=== PATIENT | female | born 1990 | race African-American/Black ===

== ENCOUNTER 2024-12-30 09:00 | Emergency (ER) | payer OTHER, SELFPAY ==
[2024-12-30 09:25] VITALS: BP 121/53; PULSE 84; RESP 16; TEMP 36.9; O2SAT 99; BMI 26.6
[2024-12-30 10:50] LABS: Hematocrit 36.7 % (37.0-47.0); Hemoglobin 12.2 g/dl (12.0-16.0); Mean Corpuscular HGB Conc 33.2 g/dl (31.0-35.0); Mean Corpuscular Hemoglobin 28.7 pg (27.0-33.0); Mean Corpuscular Volume 86.4 fL (80.0-98.0); Mean Platelet Volume 8.4 fL (9.4-12.3); Platelet Count 265 X10*3/uL (160-400); Red Blood Count 4.25 X10*6/uL (4.20-5.50); Red Cell Distribution Width 13.1 % (11.0-16.0); White Blood Count 5.3 X10*3/uL (4.8-10.8)
--- NOTE | 2024-12-30 11:07 | ED_ITS ---
HPI - Female Genitourinary General Chief complaint: Vaginal Bleeding Stated complaint: Clotting Issue Time Seen by Provider: 12/30/24 10:56 History of Present Illness HPI Narrative: Patient is a 34-year-old female had an elective termination beginning of Sep, been having intermittent vaginal bleeding since. Patient notice a piece of tissue that was hard came to the ED currently is having her menstruation. Patient is sexually active. There is no fever no chills. There is no abdominal pain. There was no coughing or congestion or upper respiratory symptoms. Feeling somewhat weak since the elective termination. Nausea has improved. Related Data Previous Rx's ?Medication ?Instructions ?Recorded metoclopramide HCl 10 mg tablet 10 mg PO Q6H PRN nausea and 09/29/24 vomiting #12 tabs Allergies Allergy/AdvReac Type Severity Reaction Status Date / Time No Known Allergies Allergy Verified 12/30/24 09:28 [No Known Allergies*] Review of Systems 2 Review of Systems: Positive vaginal bleeding Yes all other systems are reviewed and are negative [facility] Social History Social History (System 12/05/24 @ 14:50 by Haylie Garcia) Alcohol intake: current Alcohol intake frequency: does not drink Alcohol type: wine Smoked in Last 30 Days: No Use of substances other than those prescribed or required for medical reasons: Yes Substance Use Type: Marijuana Substance Use Frequency: Occasionally Any prior treatment program specific to substance use: No Advance Directives: No Advance Directives Information Provided: Yes Do you have a plan to hurt others: No Plan Patient : No Physical Exam 2 Vital Signs: Vital Signs: Last Vital Signs Temp 98.4 F 12/30/24 09:25 Pulse 84 12/30/24 09:25 Resp 16 12/30/24 09:25 BP 121/53 L 12/30/24 09:25 Pulse Ox 99 12/30/24 09:25 O2 Del Method Room Air 12/30/24 09:25 BMI result Body Mass Index 26.6 Appearance: Alert. Oriented X3. No acute distress. Eyes: Pupils equal, round and reactive to light. ENT: Pharynx normal. Neck: Normal inspection. Neck supple. No lymph nodes noted. No crepitus CVS: Normal heart rate and rhythm. Pulses normal. Normal S1 and S2 Respiratory: No respiratory distress. Breath sounds normal. No Wheezing. No rales Abdomen: Soft and nontender. No rigidity. No distention. good BS x4 Skin: Skin warm and dry. Normal skin color. Normal skin turgor. Extremities: No lower extremity edema. Neurovascular intact to all extremities. No Lacerations. No Rash Neuro: Oriented X 3. No motor deficit. No sensory deficit. Moving all extermities. No slurred speech Medical Decision Making Medical Decision Making [facility] Narrative: 34 years old had an elective termination in September. Complaining of having spotting throughout the last 2 months. She is sexually active. She had had menstrual period afterwards. Her menstruation has been regular. The amount of bleeding has been slightly different. Patient past and piece of tissue wanted that evaluated as well. This was sent to pathology. Patient's test came back with a quant of 5. Case was discussed with hospital admissions officer. Thought this is likely secondary to the elective termination but we want to make sure it is not a new . Patient was given a script for a repeat quantitative hCG to be done in 2 days. Follow-up with OBGYN outpatient. I did a pelvic exam with nurse Perrin present. Patient's has no external lesions. The cervical os was closed. There is no adnexal tenderness. There is no gross blood noted in the vaginal canal. Differential Diagnosis Differential Diagnoses: The differential diagnosis associated with the presentation includes Early , elective termination Admission/Observation Consideration of admission/observation: Escalation of care including admission/observation considered considered admission but patient's hemoglobin is good at 12. Well-appearing no distress. Quant hCG only at 5. Unlikely to be ectopic. Will discharge patient ho Consult Healthcare Provider Management of the patient was discussed with: Program Officer ( OBGYN) Lab Data [facility] Lab Attestation statement: I reviewed the patient's lab results. 12/30/24 10:43 Labs: Lab Results 12/30/24 12/30/24 12/30/24 Range/Units 10:43 10:44 11:16 WBC 5.3 (4.8-10.8) X10*3/uL RBC 4.25 (4.20-5.50) X10*6/uL Hgb 12.2 (12.0-16.0) g/dl Hct 36.7 L (37.0-47.0) % MCV 86.4 (80.0-98.0) fL MCH 28.7 (27.0-33.0) pg MCHC 33.2 (31.0-35.0) g/dl RDW 13.1 (11.0-16.0) % Plt Count 265 (160-400) X10*3/uL MPV 8.4 L (9.4-12.3) fL Absolute Nucleated RBC 0.000 (0.0-0.012) X10*3/uL Nucleated RBC % (auto) 0.0 (0.0-0.2) /100WBC Beta HCG, Quant 5 mIU/mL Urine Color Yellow Urine Appearance Clear Urine pH 7.0 (5.0-9.0) Ur Specific [place] 1.015 (1.005-1.025) Urine Protein Negative (Neg-Trace) mg/dL Urine Glucose (UA) Negative (Negative) mg/dL Urine Ketones Negative (Negative) mg/dL Urine Blood Moderate (2+) H (Negative) Urine Nitrite Negative (Negative) Ur Leukocyte Esterase Small (1+) H (Negative) Urine RBC 0-2 (0-2) /HPF Urine WBC 0-5 (0-5) /HPF Ur Squamous Epith Cells 6-10 (0-2) /HPF Urine Bacteria 1+ (None Seen) Hyaline Casts 0-2 (0-2) /LPF Discharge Plan Discharge Clinical Impression: Vaginal bleeding Patient Disposition: Home, Self-Care Instructions: Menorrhagia (ED) Additional Instructions: very small risk of still exists. Very small risk of ectopic versus early . Please get repeat hormone to be done in 2 days. Follow-up with OBGYN. Prescriptions: No Action metoclopramide HCl 10 mg tablet 10 mg PO Q6H PRN (Reason: nausea and vomiting) Qty: 12 0RF Referrals: Tripp Alejandre MD [Physician] - 01/02/25 Print Language: American
[2024-12-30 11:13] LABS: HCG Quantitative 5 mIU/mL
--- OUTSIDE RECORDS SUMMARY | 2024-12-30 11:22 | XMS_ITS | Clinical Summary ---
Author Organization [employer] Address [address] [place] [address] Care Team Providers Care Intramural Director Name Role Phone Provider, Not In System Primary Care Provider Un available Allergies No known active allergies Medications valACYclovir (Valtrex) 500 MG tabletIndications:H erpes simplex vulvovaginitis Take 1 tablet (500 mg) by mouth 2 times daily. 60 tablet 1 3 Active etonogestrel-elutin g (Nexplanon) 68 mg contraceptive implant Inject 68 mg under the skin. 8 Active Active Problems Problem Noted Date Diagnosed Date Overweight with body mass in dex (BMI) of 28 to 28.9 in adult 12/16/2022 Sciatic pain, right 12/16/2022 Tinea versicolor 12/16/2022 Herpes simplex vulvovaginitis 12/16/2022 Encounter for routine adult health examination without abnormal findings 12/16/2022 Social History Tobacco Use Types Packs/Day Years Used Date Smoking Tobacco: Never Smokeless Tobacco: Never Tobacco Cessation:Counseling Given: Not Answered Alcohol Use Standard Drinks/Week Comments Never 0 (1 standard drink = 0.6 oz pur e alcohol) Housing Stability Answer Date Recorded What is your housing situation today? I have vida dong 07/06/[address] you li ve. Do you have problems with any of the following? Pests such as bugs, ants, or mice;Mold;Inadequate heat 07/06/2023 Food Insecurity Answer Date Recorded Within the past 12 months, y ou worried that your food would run out before you got money to buy more: Never True 07/24/2023 Within the past 12 months,th e food you bought just didn't last and you didn't have enough money to get more: Never True Transportation Answer Date Recorded In the past 12 months, has l ack of transportation kept you from medical appts, meetings, work or from getting things needed for daily living? Yes, it has kept me from medical appointments or getting medications. 07/06/2023 Utilities Answer Date Recorded In the past 12 months, has t he electric, gas, oil or water company threatened to shut off services in your home? No 07/24/2023 Depression Answer Date Recorded Patient Health Questionnaire-2 Score 0 12/16/2022 Comments Unknown Sex and Gender Information Value Date Recorded Sex Assigned at Female 10/16/2022 9:20 AM EST Legal Sex Female 8:40 PM EST Gender Identity Female 08/08/2022 8:40 PM EST Sexual Orientation Straight 08/08/2022 8: 40 PM EST Last Filed Vital Signs Vital Sign Reading Time Taken Comments Blood Pressure 114/66 05/26/2023 1:25 PM EDT Pulse 71 05/26/2023 1:25 PM EDT Temperature 36.4 ??C (97.5 ??F) 05/25/2023 9:07 AM ED T Respiratory Rate - - Oxygen Saturation 99% 05/26/2023 1:25 PM EDT Inhaled Oxygen Concentration - - Weight 69.9 kg (154 lb) 05/26/2023 1:25 PM EDT Height 162.6 cm (5' 4 ) 05/26/2023 1:25 PM EDT Body Mass Index 26.43 05/26/2023 1:25 PM EDT Plan of Treatment Health Maintenance Due Date Last Done Comments Dental Oral Exam 1990 Dental Prophylaxis 1990 Dental X-Ray: Bitewings 1990 Dental X-Ray: Full Mouth 1990 Alcohol/Substance Use Screening 2002 Family Planning (PISQ) 2005 Hepatitis B Vaccines (1 of 3 - 19+ 3-dose series) 2009 Pap Smear 2011 Cervical Cancer Screening 2020 HPV/Cotest 2020 DTaP/Tdap/Td Vaccines (2 - T d or Tdap) 03/25/2022 03/25/2012 Depression Screening 12/17/2023 12/16/2022, 12/16/2022 SDOH Screening 12/17/2023 12/16/2022 Tobacco Screening 05/26/2024 05/26/2023 COVID-19 Vaccine (1 - 2023-2 5 season) 2024 Influenza Vaccine (#1) 2024 Zoster Vaccines (1 of 2) 2040 RSV Patients and Patients Aged 60 years or older (1 - 1-dose 75+ series) 2065 HIV Screening Completed 10/15/2022 Hepatitis C Screening Completed 10/15/2022 HIB Vaccines Aged Out No longer eligi ble based on patient's age to complete this topic HPV Vaccines Aged Out No longer eligi ble based on patient's age to complete this topic Hepatitis A Vaccines Aged Out No long er eligible based on patient's age to complete this topic IPV Vaccines Aged Out No longer eligi ble based on patient's age to complete this topic Meningococcal Vaccine Aged Out No dalton jeannie eligible based on patient's age to complete this topic Pneumococcal Vaccine: Pediatrics (0 to 5 Years) and At-Risk Patients (6 to 49) Years) Aged Out No longer eligible b ased on patient's age to complete this topic RSV under 20 months Aged Out No longe r eligible based on patient's age to complete this topic Rotavirus Vaccines Aged Out No longer eligible based on patient's age to complete this topic Procedures Procedure Name Priority Date/Time Associated Diagnosis Comments HEPATITIS C AB W/REFLEX TO HCV QUANT NAAT IF POSITIVE Routine 10/15/2022 10:17 AM EST HIV ANTIBODY/ANTIGEN, 4TH GENERATION Routine 10/15/2022 10:17 AM EST from Last 3 Months or Most Recently Relevant to Health Maintenance Results * HIV ANTIBODY/ANTIGEN, 4TH GENERATION (10/15/2022 10:17 AM EST) Result 4th Gen HIV Antibody Antigen NEGATIVE (NEG) [facility] Comment: Negative for antibodies to HIV 1 and HIV 2 and P24 antigen. Reference range: Negative Additional note: Written patient authorization is required for each separate release of this test result. This test was performed on the [employer] immunoassay system. Testing performed or reported by [facility], a Service of [facility], [address] [place] [address] Emmanuel Canada MD, Line Appliance Assembler CLIA# [id number] 10/15/2022 10:1 7 AM EST 10/15/2022 10:19 AM EST Lavonne Lynn [facility] BLOOD ORDERABLES Final Res ult Performing Organization Address [facility] Co de Phone Number [facility] [address] [place] [address] * Hepatitis C Antibody w/Reflex HCV Quant PCR (10/15/2022 10:17 AM EST) Hepatitis C Virus Ab, Serum NEGATIVE (NEG) [facility] Comment: Reference range: Negative This test was performed on the [employer] immunoassay system. Testing performed or reported by [facility], a Service of [facility], [facility] [address] [address] Emmanuel Canada MD, Line Appliance Assembler CLIA# [id number] 10/15/2022 10:1 7 AM EST 10/15/2022 10:19 AM EST Lavonne Lynn [facility] BLOOD ORDERABLES Final Res ult Performing Organization Address [facility] de Phone Number [facility] [address] [place] [phone] from Last 3 Months or Most Recently Relevant to Health Maintenance Insurance [facility] C[place] STAND ADULT DENTAL - HSN FULL (MEDICAID) Care Teams Intramural Director Relationship Specialty Start Date End Date Provider, Not In System PCP - General Family Medicine 12/29/23
[2024-12-30 11:27] LABS: Appearance Urine Clear; Color Urine Yellow; Glucose Urine UA Negative (Negative); Leukocyte Esterase Urine Small (1+) (Negative); Nitrite Urine Negative (Negative); Specific Gravity - Urine 1.015 (1.005-1.025); UMIC TRIGGER UACC YES; Urine Blood Moderate (2+) (Negative); Urine Ketones Negative (Negative); Urine Protein Negative (Neg-Trace)
[2024-12-30 11:35] LABS: Bacteria Urine 1+ (None Seen); Hyaline Casts Urine 0-2 /LPF (0-2); RBC Urine 0-2 /HPF (0-2); UACC Culture Trigger YES; WBC Urine 0-5 /HPF (0-5)
--- NOTE | 2024-12-30 12:09 | PC.NURSE ---
Pt brought a piece of tissue that was expelled from her while on the toilet; tissue sample placed in specimen cup and hand-delivered to pathology by this RN for ordered analysis
--- NOTE | 2024-12-30 13:07 | PC.NURSE ---
Pelvic exam completed by Dr Sanchez with this RN present; pt tolerated well
[2024-12-30 13:11] VITALS: BP 112/79; PULSE 62; RESP 14; TEMP 36.5; O2SAT 99
[2024-12-30 13:14] VITALS: BP 112/79; PULSE 62; RESP 14; TEMP 36.5; O2SAT 99
--- NOTE | 2024-12-30 13:19 | PM.GYNCN ---
SEEDLING PULLER - CN: HPI Data of Consult Consult date: 12/30/24 Primary Care Provider: None Physician Consult Narrative Narrative: I was consulted on Dianna Morales who is a 34 year old female status post medical termination of in the beginning of Sep, presenting complaining of vaginal bleeding no associated pelvic pain and or other concerns. Patient notice a piece of tissue that was hard came to the ED currently is having her menstruation. Patient is sexually active. There is no fever no chills. There is no abdominal pain. In the emergency room H&H was 12.2/36.5 HCG was 5 cc:: CC: OB [facility] Social History Social History (System 12/05/24 @ 14:50 by Haylie Garcia) Alcohol intake: current Alcohol intake frequency: does not drink Alcohol type: wine Smoked in Last 30 Days: No Use of substances other than those prescribed or required for medical reasons: Yes Substance Use Type: Marijuana Substance Use Frequency: Occasionally Any prior treatment program specific to substance use: No Advance Directives: No Advance Directives Information Provided: Yes Do you have a plan to hurt others: No Plan Patient : No Meds Allergies Allergy/AdvReac Type Severity Reaction Status Date / Time No Known Allergies Allergy Verified 12/30/24 09:28 [No Known Allergies*] SEEDLING PULLER Physical Exam Vitals Vital signs: Temp Pulse Resp BP Pulse Ox O2 Del Method 97.7 F 62 14 112/79 99 Room Air 12/30/24 13:14 12/30/24 13:14 12/30/24 13:14 12/30/24 13:14 12/30/24 13:14 12/30/24 13:14 BMI result Body Mass Index 26.6 Additional Comments: Physical exam reported by Dr. Sanchez as the following: Soft and nontender. No rigidity. No distention. good BS x4 SEEDLING PULLER - Results Labs 12/30/24 10:43 Labs: Short CBC 12/30/24 Range/Units 10:43 WBC 5.3 (4.8-10.8) X10*3/uL Hgb 12.2 (12.0-16.0) g/dl Hct 36.7 L (37.0-47.0) % Plt Count 265 (160-400) X10*3/uL Urine 12/30/24 Range/Units 11:16 Urine Color Yellow Urine Appearance Clear Urine pH 7.0 (5.0-9.0) Ur Specific [place] 1.015 (1.005-1.025) Urine Protein Negative (Neg-Trace) mg/dL Urine Glucose (UA) Negative (Negative) mg/dL Assessment and Plan (1) Vaginal bleeding: Status: Acute Discussed the following with Dr. Sanchez: Differential diagnosis includes early , elevated hCG related to incomplete , abnormal uterine bleeding or other, recommended repeat hCG with a re-evaluation in 48 hours. Signs and symptoms of ectopic and incomplete to be discussed with the patient. Instructions to be given to patient to come back to emergency room in case of persistence or worsening vaginal bleeding, pelvic pain, temperature above 100.4, follow-up with quantitative hCG/re-evaluation in 48 hours in the emergency room to ensure hCG is dropping. If hCG is increasing rule out ectopic and documented IUP, if hCG drops below 2, elevated hCG is related to previous termination of I spent a total of 20 minutes reviewing the chart, communicating with the emergency room provider and documenting in the medical record.
== END 2024-12-30 13:14 | disposition home or self-care (01) ==
PROVIDERS: Emergency Provider Emergency Medicine Emergency Medical Services
DX: N93.9 Abnormal uterine and vaginal bleeding, unspecified (principal); N93.8 Other specified abnormal uterine and vaginal bleeding; R10.2 Pelvic and perineal pain; Z79.899 Other long term (current) drug therapy
CPT/HCPCS: 36415; 81001; 84702; 85027; 87086; 88305; 99284

== ENCOUNTER → 2024-12-30 09:58 | Outpatient (BNV) | payer OTHER, SELFPAY | PROVIDERS: Emergency Provider Emergency Medicine Emergency Medical Services; Visit Provider Obstetrics & Gynecology | DX: N93.9 Abnormal uterine and vaginal bleeding, unspecified (principal) | CPT/HCPCS: 99499 ==

== ENCOUNTER 2025-04-17 19:20 | Emergency (ER) | payer OTHER, SELFPAY ==
[2025-04-17 19:34] VITALS: BP 111/72; PULSE 61; RESP 18; TEMP 36.4; O2SAT 99; BMI 22.8
--- NOTE | 2025-04-17 19:34 | ED.GENADULT ---
HPI - General Adult General Chief complaint: General Medical Stated complaint: none stop N/V weak, 10 weeks + Related Data Previous Rx's ?Medication ?Instructions ?Recorded metoclopramide HCl 10 mg tablet 10 mg PO Q6H PRN nausea and 09/29/24 vomiting #12 tabs Allergies Allergy/AdvReac Type Severity Reaction Status Date / Time No Known Allergies (No Known Allergy Verified 04/17/25 19:36 Allergies*) [facility] Social History Social History (System 12/05/24 @ 14:50 by Haylie Garcia) Alcohol intake: current Alcohol intake frequency: does not drink Alcohol type: wine Substance Use Type: Marijuana Advance Directives: No Advance Directives Information Provided: No Do you have a plan to hurt others: No Plan Physical Exam ED Vital Signs: BMI result Body Mass Index 22.8 Course Course Course Narrative: This is an RME performed by Jazmyn Davis CNP: Additional HPI, ROS, PE not included below will be deferred to primary provider. Patient is a 34-year-old female who presents emergency department for evaluation she is a G8, a 2 currently 10 weeks gestation with estimated due date 11/11/2025, following with the Obstetrics at [facility], has been taking vitamin B6 and Unisom for morning sickness. However she states that today she has been vomiting all day, having shaking chills, can not keep anything down. Denies symptoms. Has diffuse upper abdominal pain. Has already had ultrasound confirming IUP Plan: Serum labs, hCG, urinalysis Reevaluation(s) Reevaluation #1: CT Medical Decision Making Lab Data 04/17/25 20:33 04/17/25 20:33 Labs: Lab Results 04/17/25 04/17/25 Range/Units 20:33 20:36 WBC 11.3 H (4.8-10.8) X10*3/uL RBC 4.09 L (4.20-5.50) X10*6/uL Hgb 12.1 (12.0-16.0) g/dl Hct 34.1 L (37.0-47.0) % MCV 83.4 (80.0-98.0) fL MCH 29.6 (27.0-33.0) pg MCHC 35.5 H (31.0-35.0) g/dl RDW 13.9 (11.0-16.0) % Plt Count 244 (160-400) X10*3/uL MPV 8.4 L (9.4-12.3) fL Immature Gran % (Auto) 0.4 (0.0-0.4) % Neut % (Auto) 93.5 H (45-73) % Lymph % (Auto) 4.6 L (20-40) % [place] % (Auto) 1.3 L (2-11) % Eos % (Auto) 0.0 (0-4) % Baso % (Auto) 0.2 (0-2) % Lymph # (Auto) 0.5 L (1.2-4.9) X10*3/uL [place] # (Auto) 0.2 (0.1-1.2) X10*3/uL Eos # (Auto) 0.0 (0.0-0.4) X10*3/uL Baso # (Auto) 0.0 (0.0-0.2) X10*3/uL Abs Immat Gran (auto) 0.04 H (0.00-0.03) X10*3/uL Absolute Neuts (auto) 10.6 H (2.0-8.3) x10*3/uL Absolute Nucleated RBC 0.000 (0.0-0.012) X10*3/uL Nucleated RBC % (auto) 0.0 (0.0-0.2) /100WBC Smear Tech's Comments VERIFIED Sodium 136 (135-145) mmol/L Potassium 3.6 (3.3-5.1) mmol/L Chloride 103 (96-108) mmol/L Carbon Dioxide 22 (22-29) mmol/L Anion Gap 15 (12-20) BUN 10 (9-16) mg/dL Creatinine 0.52 (0.5-1.4) mg/dL Estim Creat Clear Calc 131.6 Estimated GFR > 60 Random Glucose 121 H (60-115) mg/dL Calcium 8.8 (8.4-10.2) mg/dL Total Bilirubin 0.5 (0.0-1.0) mg/dL AST 22 (5-31) U/L ALT 8 (0-31) U/L Alkaline Phosphatase 40 (39-117) U/L Total Protein 7.2 (6.5-8.0) g/dL Albumin 4.3 (3.5-5.0) g/dL Lipase 13 (8-78) U/L Beta HCG, Quant [id number] mIU/mL Urine Color Yellow Urine Appearance Clear Urine pH 6.0 (5.0-9.0) Ur Specific [place] >= 1.030 H (1.005-1.025) Urine Protein 30 (1+) H (Neg-Trace) mg/dL Urine Glucose (UA) Negative (Negative) mg/dL Urine Ketones >=160 (Negative) mg/dL Urine Blood Trace H (Negative) Urine Nitrite Negative (Negative) Ur Leukocyte Esterase Small (1+) H (Negative) Urine RBC 3-5 H (0-2) /HPF Urine WBC >50 H (0-5) /HPF Ur Squamous Epith Cells 3-5 (0-2) /HPF Urine Bacteria None Seen (None Seen) Hyaline Casts 0-2 (0-2) /LPF Discharge Plan Discharge Clinical Impression: Nausea and vomiting during Patient Disposition: Left W/O Completing Treatment Prescriptions: No Action metoclopramide HCl 10 mg tablet 10 mg PO Q6H PRN (Reason: nausea and vomiting) Qty: 12 0RF Discharge Date/Time: 04/17/25 23:25
[2025-04-17 20:54] LABS: Hematocrit 34.1 % (37.0-47.0); Hemoglobin 12.1 g/dl (12.0-16.0); Imm Gran Abs Auto 0.04 X10*3/uL (0.00-0.03); Imm Gran Pct Auto 0.4 % (0.0-0.4); Lymphocytes Absolute Auto 0.5 X10*3/uL (1.2-4.9); MANUAL DIFF FLAG SCAN; Mean Corpuscular HGB Conc 35.5 g/dl (31.0-35.0); Mean Corpuscular Hemoglobin 29.6 pg (27.0-33.0); Mean Corpuscular Volume 83.4 fL (80.0-98.0); NRBC Abs Auto 0.000 X10*3/uL (0.0-0.012); NRBC Pct Auto 0.0 /100WBC (0.0-0.2); Platelet Count 244 X10*3/uL (160-400); Red Blood Count 4.09 X10*6/uL (4.20-5.50); SCAN SMEAR FLAG 1; White Blood Count 11.3 X10*3/uL (4.8-10.8)
[2025-04-17 20:58] LABS: Appearance Urine Clear; Glucose Urine UA Negative (Negative); PH 6.0 (5.0-9.0); Specific Gravity - Urine >= 1.030 (1.005-1.025); UMIC TRIGGER UACC YES
[2025-04-17 21:03] LABS: UACC Culture Trigger YES
[2025-04-17 21:13] LABS: Alanine Aminotransferase 8 U/L (0-31); Albumin Level 4.3 g/dL (3.5-5.0); Alkaline Phosphatase 40 U/L (39-117); Anion Gap 15 (12-20); Aspartate Amino Transferase 22 U/L (5-31); Blood Urea Nitrogen 10 mg/dL (9-16); Calcium 8.8 mg/dL (8.4-10.2); Carbon Dioxide 22 mmol/L (22-29); Chloride 103 mmol/L (96-108); Creatinine Clr Calc Pharmacy 131.6; Estimated Glomerular Filt Rate > 60; Lipase 13 U/L (8-78); Potassium 3.6 mmol/L (3.3-5.1); Sodium 136 mmol/L (135-145); Total Protein 7.2 g/dL (6.5-8.0)
== END 2025-04-17 23:25 | disposition left against medical advice (07) ==
LOC: HO.ED 23:27
PROVIDERS: Nurse Practitioner Family; Emergency Provider Emergency Medicine; PCP Nurse Practitioner
DX: O21.9 Vomiting of pregnancy, unspecified (principal); Z3A.10 10 weeks gestation of pregnancy
CPT/HCPCS: 36415; 80053; 81001; 81003; 83690; 84702; 85025; 87086; 99282; 99283